=== PATIENT | female | born 1960 | race Caucasian/White ===

== ENCOUNTER → 2016-08-19 | Outpatient (CLI) | payer OTHER ==
[~2016-08-19] MED LIST: [UNRECOGNIZED DRUG - OTHER]
--- NOTE | ~2016-08-19 | US128 ---
[id number] [address] [id number] O MR#: [id number] Acc #: [id number] NAME: ALEX SR : 1960 SEX: F STUDY DATE/TIME: 08/19/2016 9:19 UNIT: [facility] ROOM: STUDY DESCRIPTION: Thyroid Attending Physician: Emely Fitch Aprn Referring Physician: Emely Fitch Aprn Ordering Physician: Emely Fitch Aprn Primary Care Physician: Mark Harrington M.D. MEDICAL IMAGING REPORT This report is preliminary unless electronic signature is present. EXAM Thyroid sonogram. HISTORY Sensation of a knot in the throat when swallowing. Symptoms over the past 2 weeks. TECHNIQUE Ultrasound evaluation was performed with chau-scale and color-flow imaging. FINDINGS The right thyroid lobe measures 1 x 1.1 x 3 cm and the left thyroid lobe measures 0.9 x 1 x 2.7 cm. The echo pattern is normal. No dominant masses or cysts are seen. The isthmus is not thickened measuring 4 mm. IMPRESSION Normal. Dictated by... Keon Zarate M.D. THIS IS AN ELECTRONICALLY VERIFIED REPORT Keon Zarate M.D. at 08/19/2016 3:46 PM RLF/laura TD: 08/19/2016 12:48 JOB #: [id number] MEDICAL IMAGING REPORT Page 1 of 1
== END | disposition home or self-care (01) ==
LOC: SGUS 07:56
DX: R13.10 Dysphagia, unspecified (principal)
CPT/HCPCS: 76536